=== PATIENT | male | born 1940 | race Caucasian/White ===

== ENCOUNTER 2019-11-02 14:25 | Emergency (ER) | payer MEDICARE ==
[~2019-11-02] VITALS: Ht 172.7 cm; Wt 62.6 kg
[~2019-11-02 14:25] MED LIST: ALBU18HF2 INH; CARV6.253 PO; FORM20VI NEB; FURO20TA4 PO; IPRA4AER IH; LEVA1.2527 NEB; LISI2.5T2 PO; PRED20TA PO; UMEC1DIS PO
[2019-11-02 16:28] LABS: BASOPHILS % (AUTO) 0.1 % (0-1); EOSINOPHILS % (AUTO) 0.3 % (0-6); HEMATOCRIT 39.2 % (42.0-52.0); LYMPHOCYTES # (AUTO) 0.5 X10'3 (1.1-4.8); LYMPHOCYTES % (AUTO) 2.6 % (21-51); MEAN CORPUSCULAR HEMOGLOBIN 29.5 PG (27.0-31.0); MEAN CORPUSCULAR HGB CONC 33.3 g/dL (33.0-36.5); MEAN CORPUSCULAR VOLUME 88.5 FL (78-98); MEAN PLATELET VOLUME 7.3 FL (7.4-10.4); MONOCYTES # (AUTO) 1.3 X10'3 (0-0.9); MONOCYTES % (AUTO) 6.8 % (2-12); NEUTROPHILS # (AUTO) 16.8 X10'3 (1.8-7.7); NEUTROPHILS % (AUTO) 90.2 % (42-75); PLATELET COUNT 333 X10'3 (140-440); RED BLOOD COUNT 4.42 X10'6 (4.70-6.10); RED CELL DISTRIBUTION WIDTH 14.9 % (11.5-14.5); WHITE BLOOD COUNT 18.7 X10'3 (4.5-11.0)
[2019-11-02 16:40] LABS: PARTIAL THROMBOPLASTIN TIME 26 SECONDS (22-32)
[2019-11-02 16:44] LABS: ALANINE AMINOTRANSFERASE 31 U/L (12-78); ALBUMIN 3.7 G/DL (3.4-5.0); ALBUMIN/GLOBULIN RATIO 1.2 (1.1-1.5); ALKALINE PHOSPHATASE 76 IU/L (46-116); ANION GAP 7 (8-16); ASPARTATE AMINO TRANSFERASE 19 U/L (10-37); BILIRUBIN,TOTAL 0.6 MG/DL (0.1-1.0); BLOOD UREA NITROGEN 14 MG/DL (7-18); BUN/CREATININE RATIO 13.6 (5.4-32.0); CALCIUM 8.7 MG/DL (8.5-10.1); CHLORIDE 95 MMOL/L (99-107); CREATININE 1.03 MG/DL (0.60-1.10); GLUCOSE 128 MG/DL (70-104); POTASSIUM 3.7 MMOL/L (3.5-5.1); SODIUM 134 MMOL/L (135-145); TOTAL CARBON DIOXIDE 32.4 MMOL/L (24-32); TOTAL PROTEIN 6.8 G/DL (6.4-8.2); eGFR 70 ML/MIN
[2019-11-02 16:53] LABS: MAGNESIUM 1.9 MG/DL (1.5-2.4)
[2019-11-02 17:09] LABS: CLARITY,URINE CLEAR (Clear); COLOR,URINE YELLOW (Yellow); GLUCOSE, URINE NEGATIVE (Neg); KETONES,URINE NEGATIVE (Neg); LEUKOCYTE ESTERASE ,URINE NEGATIVE (Neg); NITRITES, URINE NEGATIVE (Neg); OCCULT BLOOD,URINE NEGATIVE (Neg); PH,URINE 5.5 (4.8-8.0); PROTEIN,URINE NEGATIVE (Neg); UA COLLECTION TYPE VOIDED; UROBILINOGEN,URINE 0.2 E.U/dL (0.2-1.0)
[2019-11-02 17:21] LABS: URINE AMPHETAMINE SCREEN NEGATIVE (Neg); URINE BARBITUATE SCREEN NEGATIVE (Neg); URINE BENZODIAZEPINES SCREEN NEGATIVE (Neg); URINE CANNABINOID SCREEN NEGATIVE (Neg); URINE COCAINE SCREEN NEGATIVE (Neg); URINE METHADONE SCREEN NEGATIVE (Neg); URINE OPIATE SCREEN NEGATIVE (Neg); URINE PHENCYCLIDINE SCREEN NEGATIVE (Neg)
--- NOTE | 2019-11-02 17:43 | NUR ---
TELE NEURO CONSULT HAS BEEN INITIATED
[2019-11-02] MEDS ORDERED: OLANZapine 2.5MG tablet PO STA (19:51)
[2019-11-02 19:59] VITALS: BP 125/95
[2019-11-02] MEDS ORDERED: budesonide 0.5mg/2ml UD nebule IH SCH (20:16)
[2019-11-02] MEDS ORDERED: albuterol 2.5 MG/3 ML nebule NEB PRN (20:20)
[2019-11-02] MEDS ORDERED: levalbuterol 1.25mg/0.5ml nebule IH SCH (21:00)
[2019-11-03] MEDS ORDERED: furosemide 20MG tablet PO SCH (08:00)
[2019-11-03] MEDS ORDERED: FURO20TA4 PO (16:52)
[2019-11-07] MEDS ORDERED: tamsulosin capsule PO (12:17)
[2019-11-07] MEDS ORDERED: AMOX-422 PO (12:17)
[2019-11-07] MEDS ORDERED: FLO0.4C PO (12:17)
[2019-11-07] MEDS ORDERED: OLAN2.5T28 PO (12:17)
== END 2019-11-02 21:38 | disposition home or self-care (01) ==
LOC: ER 14:25
DX: F29 Unspecified psychosis not due to a substance or known physiological condition (principal); R93.89 Abnormal findings on diagnostic imaging of other specified body structures; I10 Essential (primary) hypertension; J44.9 Chronic obstructive pulmonary disease, unspecified; Z87.01 Personal history of pneumonia (recurrent); Z79.899 Other long term (current) drug therapy; Z88.2 Allergy status to sulfonamides; Z88.8 Allergy status to other drugs, medicaments and biological substances
CPT/HCPCS: 36415; 70450; 71045; 80053; 80305; 81003; 83605; 83735; 83880; 84145; 85025; 85610; 85730; 87040; 93005; 99285; J7614

== ENCOUNTER 2019-11-02 20:42 | Inpatient (IN) | payer MEDICARE ==
[~2019-11-02] VITALS: Ht 177.8 cm; Wt 59.7 kg
[2019-11-02] MEDS ORDERED: loperamide 2mg capsule PO PRN (21:50)
[2019-11-02] MEDS ORDERED: acetaminophen 325mg tablet PO PRN ×2 (21:50)
[2019-11-02] MEDS ORDERED: mag hydrox/Alum hydrox/simeth 30ml oral suspension PO PRN (21:55)
[2019-11-02] MEDS ORDERED: LORazepam 1 MG tablet PO PRN (21:55)
[2019-11-02] MEDS ORDERED: magnesium hydroxide 30ml (MOM) UD suspension PO PRN (21:55)
[2019-11-02] MEDS ORDERED: hydrOXYzine 25 MG tablet PO PRN (21:55)
[2019-11-02 22:20] VITALS: BP 140/76
[2019-11-02] MEDS ORDERED: albuterol 2.5 MG/3 ML nebule NEB PRN (22:45)
[2019-11-02] MEDS ORDERED: OLANZapine 2.5MG tablet PO ONE (23:30)
--- NOTE | 2019-11-03 02:04 | NUR ---
RESP PAGED AT 02:00 FOR CPAP.
--- NOTE | 2019-11-03 02:39 | NUR ---
Client refused CPAP. CPAP and Nasal canula left in storage room for client.
--- NOTE | 2019-11-03 02:40 | NUR ---
ADMIT NOTE: Client presented to ED with symptoms of psychosis. Client does not have hx of mental health issues (according to family). Client was recently admitted for Respiratory Distress. 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 Client received steroids to treat inflammation in lungs and began to demonstrate changes in behavior and mentation. Client reported seeing "sheep and floaty things". Client then reported hearing voices giving him various directions which client adamantly adhere's to. Client appeared anxious when he arrived on the unit. His behavior is disorganized, as is his thought process. Arrived at 22:19 in a wheelchair accompanied by Dino Fuchs. Client initially was cooperative and then became resistive to care. Client refused CPAP and nasal canula. Client attempted to exit unit and was redirected by two staff members to his room. Client is currently on a LOS.
--- NOTE | 2019-11-03 02:50 | NUR ---
LOS FOR ELOPEMENT RISK.
[2019-11-03 08:00] VITALS: BP 104/55
[2019-11-03] MEDS ORDERED: furosemide 20MG tablet PO SCH (08:00)
[2019-11-03 08:17] LABS: HEMOGLOBIN A1C 6.5 % (4.5-6.2)
[2019-11-03 08:18] LABS: CHOL/HDL RATIO 2.5 (0.00-4.99); CHOLESTEROL 142 MG/DL (0-200); HDL CHOLESTEROL 56 MG/DL (35-60); LDL CHOLESTEROL 78 MG/DL (50-100); TRIGLYCERIDES 44 MG/DL (20-135)
[2019-11-03] MEDS: levalbuterol 1.25mg/0.5ml nebule IH SCH ×2 (09:00→15:47)
[2019-11-03] MEDS ORDERED: FORMOTEROL FUMARATE IH SCH (09:00)
--- NOTE | 2019-11-03 12:31 | NUR ---
Malnutrition consult: Unsure of wt loss however decreased appetite per malnutrition risk screen with RN. Pt documented as confused, A/O x1, agitated, impulsive, anxious, and resistive to care. Only recent wt hx is pt stated wt of 61.36 kg obtained 10/18/19; current standing scaled wt is 59.7 kg. Per ht hx pt 68", updated BMI more appropriate at 19.7. Pt on a regular diet documented with 25% PO intake first meal not meeting nutrient needs. Per physical assessment pt c/o mouth being sore, likely impacting PO intake. Pt with good PO intake meeting nutrient needs throughout LOS at last admit 10/18-10/23. Pt with no decrease in muscle strength however with bilat hand 1+, RLE 3+, and LLE 2 + edema. Pt currently lacks a minimum of two criteria. Will continue to follow and monitor weight and trends in PO intake to monitor for malnutrition during admit. Addendum: 11/03/19 at [address] Amended: Links added.
--- NOTE | 2019-11-03 13:16 | NUR ---
Nursing Note: Pt presented as confused, paranoid, fearful, and hypervigilant this morning, he began pacing the unit and door checking. He asked for breakfast then stated he wanted waffles so wasn't going to eat since there were no waffles. Pt did agree to eat some breakfast with much encouragement, he ate around 25% of breakfast. PCT reported that the pt appeared to be seeing things that were not there. Pt given prn Ativan 1 mg at 0814 with much encouragement for anxiety/agitation. Pt c/o his mouth being really sore, diffuse white patches noted on gums. Pt's HR was irregular, he has BLE edema. Right LE +3 pitting pretibial down to feet, LLE +2 pitting pretibial down. Pt has a moist productive cough, unable to visualize secretions as the pt swallows them. Pt continues on a 1:1 due to confusion/delirium and elopement attempt last night. PCT reported that everytime the pt fell asleep he was aspirating on his saliva while laying in bed on his back, he would then sit up and cough, then lie back down again. Lung sounds are diminished throughout. Per noc shift report pt refused his CPAP last night and did not sleep at all. Pt repositioned on his side with HOB up 45 degrees and then was able to sleep without coughing. Pt is on routine nebulizer treatments, notified RT of respiratory issues. Requested that RT return to apply bipap. RT did return and apply biPap, pt currently tolerating. Pt's family visited, stressed that this was an abrupt mental change for the patient, that he has no previous psych history. They expressed concern over the possibility of the pt being started on an antipsychotic medication and in fact were against it at this point, they wished to speak with the provider. They also stated that the pt likes his CPAP and is normally quite vigilant with it. Bryon JORDAN notified of family's concerns. PCT called this RN to the room as the pt was standing up with his eyes closed and fumbling with his pants. A urinal was provided and pt was able to void into the urinal with assistance while standing there with his eyes still closed. Called to the room again by PCT as pt was sitting on the edge of the bed with his eyes closed rubbing his private area repeatedly and would not stop. Pt did not seem to be aware of what he was doing, assisted pt to lie back down again. Addressed concerns with charge nurse, PA, and director that pt seemed to be exhibiting signs of delirium and last WBC count from 11/02/19 was elevated at 18.7, pt also had an elevated BNP of 1430. Paged hospitalist. Dr Ryan returned the call and agreed that the pt should be on a medical floor. Pt is to be transferred to a medical unit.
[2019-11-03 13:45] VITALS: BP 107/51
--- NOTE | 2019-11-03 15:53 | NUR ---
PCT reported that pt has been trying to void using the urinal with assistance but has only been able to void 25 ml after receiving PO Lasix 20 mg this morning. PCT reported that he did have a full void in the toilet earlier in the shift before breakfast. Bladder scan showed 526 ml urine. Bladder does not appear or feel distended. VS rechecked: 98.2, 107/51, RR 36, O2 sat 92% on RA. HR with dynamap jumping around from 40 up to 62, irregular to palpation and auscultation. Pt coughed up a small amount of thick yellow sputum, cough is moist, audible upper airway congestion. Pt is obtunded though does respond to light sternal rub by opening his eyes momentarily. Dr Major arrived on the unit to assess pt. states pt needs to be transferred to PCU. Called and notified nursing nursery supervisor Elizabeth. Dr Major stated no intervention needed for urinary retention at this time, it can wait until pt transferred.
--- NOTE | 2019-11-03 16:50 | NUR ---
Pt transferred to PCU room 3027B via w/c accompanied by PCT and RT, report given to MED DIR.
[2019-11-03] MEDS ORDERED: FURO20TA4 PO (16:52)
[2019-11-07] MEDS ORDERED: tamsulosin capsule PO (12:17)
[2019-11-07] MEDS ORDERED: OLAN2.5T28 PO (12:17)
[2019-11-07] MEDS ORDERED: AMOX-422 PO (12:17)
[2019-11-07] MEDS ORDERED: FLO0.4C PO (12:17)
== END 2019-11-03 16:32 | disposition swing bed (61) | DRG 885 ==
LOC: ADULT MH 21:41
PROVIDERS: ADMIT Psychiatry & Neurology Psychiatry; ATTEND Psychiatry & Neurology Psychiatry
PROC: 5A09357 Assistance with Respiratory Ventilation, Less than 24 Consecutive Hours, Continuous Positive Airway Pressure (ICD-10-PCS; principal; 2019-11-03)
DX: F29 Unspecified psychosis not due to a substance or known physiological condition (principal); I11.0 Hypertensive heart disease with heart failure; I50.9 Heart failure, unspecified; J44.9 Chronic obstructive pulmonary disease, unspecified; G47.30 Sleep apnea, unspecified; Z85.46 Personal history of malignant neoplasm of prostate
CPT/HCPCS: 36415; 80061; 83036; 87081; 94640; 94660; 94760; J7614

== ENCOUNTER 2019-11-12 22:06 | Emergency (ER) | payer MEDICARE ==
[~2019-11-12] VITALS: Ht 172.7 cm; Wt 59.1 kg
[~2019-11-12 22:06] MED LIST changes: +AMOX-422 PO; -CARV6.253 PO; +FLO0.4C PO; -IPRA4AER IH; -LISI2.5T2 PO; +OLAN2.5T28 PO; -PRED20TA PO; -UMEC1DIS PO; +tamsulosin capsule PO
[2019-11-12 23:04] LABS: CLARITY,URINE CLEAR (Clear); COLOR,URINE YELLOW (Yellow); GLUCOSE, URINE NEGATIVE (Neg); KETONES,URINE NEGATIVE (Neg); LEUKOCYTE ESTERASE ,URINE TRACE (Neg); NITRITES, URINE NEGATIVE (Neg); OCCULT BLOOD,URINE MODERATE (Neg); PROTEIN,URINE NEGATIVE (Neg); UROBILINOGEN,URINE 0.2 E.U/dL (0.2-1.0)
[2019-11-12 23:08] LABS: UA COLLECTION TYPE FOLEY CATH
[2019-11-12 23:09] LABS: WBC,URINE 0-4 /HPF (0-4)
[2019-11-12 23:10] LABS: BACTERIA,URINE FEW /HPF (Neg); SQUAMOUS EPITHELIAL CELL,UR NONE SEEN /LPF (FEW); TRANSITIONAL EPI CELLS,URINE FEW /HPF
[2019-11-12] MEDS ORDERED: CIPR-230 PO (23:20)
[2019-11-12 23:51] VITALS: BP 125/78
== END 2019-11-12 23:53 | disposition home or self-care (01) ==
LOC: ER 22:06
DX: R33.9 Retention of urine, unspecified (principal); R10.30 Lower abdominal pain, unspecified; I10 Essential (primary) hypertension; J43.9 Emphysema, unspecified; Z88.2 Allergy status to sulfonamides; Z79.2 Long term (current) use of antibiotics; Z79.899 Other long term (current) drug therapy
CPT/HCPCS: 81001; 87088; 99283

== ENCOUNTER 2020-12-06 18:59 | Emergency (ER) | payer MEDICARE ==
[~2020-12-06] VITALS: Ht 172.7 cm; Wt 64.8 kg
[~2020-12-06 18:59] MED LIST changes: -AMOX-422 PO; -FLO0.4C PO
--- NOTE | 2020-12-06 19:27 | NUR ---
NO ISOLATION NEEDED, PER DR DOTSON, ORDER TAKEN FOR BLADDER SCAN AND TEE PLACEMENT
[2020-12-06] MEDS ORDERED: dexamethasone 4mg tablet PO ONE (19:30)
[2020-12-06] MEDS ORDERED: ipratropium/albuterol 3ml nebule NEB ONE (19:30)
[2020-12-06] MEDS ORDERED: LIDOcaine 2% 10ml TOPICAL JELLY (Urojet) TP ONE ×2 (19:30)
[2020-12-06] MEDS ORDERED: DOXY100C43 PO (20:53)
[2020-12-06] MEDS ORDERED: ALBU8HFA PO (20:53)
[2020-12-06] MEDS ORDERED: PRED20TA PO (20:53)
[2020-12-06 21:04] VITALS: BP 156/66
== END 2020-12-06 21:12 | disposition home or self-care (01) ==
LOC: ER 18:59
DX: R33.9 Retention of urine, unspecified (principal); J44.1 Chronic obstructive pulmonary disease with (acute) exacerbation; R91.8 Other nonspecific abnormal finding of lung field; I10 Essential (primary) hypertension; Z88.2 Allergy status to sulfonamides; Z79.899 Other long term (current) drug therapy
CPT/HCPCS: 51702; 74176; 93005; 94640; 94760; 99284

== ENCOUNTER 2021-12-06 01:45 | Emergency (ER) | payer MEDICARE ==
[~2021-12-06] VITALS: Ht 172.7 cm; Wt 78.9 kg
[~2021-12-06 01:45] MED LIST changes: +BUDE0.5A3 NEB; +DUTA0.5C36 PO; +FLO0.4C PO; -FORM20VI NEB; -FURO20TA4 PO; -OLAN2.5T28 PO; -tamsulosin capsule PO
[2021-12-06 03:15] VITALS: BP 160/78
--- NOTE | 2021-12-06 05:01 | NUR ---
PATIENT PLACED IN FAST TRACK. COUDE CATH ATTEMPTED ON THREE OCCASIONS BY THREE DIFFERENT RN'S WITHOUT SUCCESS. ER MD NOTIFIED. MD WILL ATTEMPT PLACEMENT HIMSELF. PATIENT WAS ABOE TO VOIDE ABOUT 150 CC'S IN HOSPITAL BED.
[2021-12-06 08:17] LABS: CLARITY,URINE SLIGHTLY CLOUDY (Clear); COLOR,URINE YELLOW (Yellow); GLUCOSE, URINE NEGATIVE (Neg); KETONES,URINE 15 mg/dl (Neg); LEUKOCYTE ESTERASE ,URINE NEGATIVE (Neg); NITRITES, URINE NEGATIVE (Neg); OCCULT BLOOD,URINE MODERATE (Neg); PROTEIN,URINE TRACE mg/dl (Neg); UROBILINOGEN,URINE 0.2 E.U/dL (0.2-1.0)
[2021-12-06 08:18] LABS: UA COLLECTION TYPE URINAL
[2021-12-06 08:24] LABS: BACTERIA,URINE NONE SEEN /HPF (Neg); MUCUS STRANDS FEW /LPF (Neg); RBC,URINE 20-50 /HPF (0-2); SQUAMOUS EPITHELIAL CELL,UR NONE SEEN /LPF (FEW); WBC,URINE 0-4 /HPF (0-4)
== END 2021-12-06 09:20 | disposition home or self-care (01) ==
LOC: ER 01:45
DX: R33.9 Retention of urine, unspecified (principal); R32 Unspecified urinary incontinence; I10 Essential (primary) hypertension; J43.9 Emphysema, unspecified; N40.0 Benign prostatic hyperplasia without lower urinary tract symptoms; Z88.2 Allergy status to sulfonamides; Z79.899 Other long term (current) drug therapy
CPT/HCPCS: 81001; 99284

== ENCOUNTER 2022-10-12 21:56 | Emergency (ER) | payer MEDICARE ==
[~2022-10-12] VITALS: Ht 172.7 cm; Wt 75.0 kg
[2022-10-12 23:36] LABS: BASOPHILS # (AUTO) 0.1 X10'3 (0-0.2); BASOPHILS % (AUTO) 0.9 % (0-1); EOSINOPHILS # (AUTO) 0.1 X10'3 (0-0.9); EOSINOPHILS % (AUTO) 0.8 % (0-6); HEMATOCRIT 41.6 % (42.0-52.0); HEMOGLOBIN 13.5 g/dl (14.0-17.9); LYMPHOCYTES # (AUTO) 0.6 X10'3 (1.1-4.8); LYMPHOCYTES % (AUTO) 4.6 % (21-51); MEAN CORPUSCULAR HGB CONC 32.4 g/dL (33.0-36.5); MEAN CORPUSCULAR VOLUME 95.5 FL (78-98); MEAN PLATELET VOLUME 7.9 FL (7.4-10.4); MONOCYTES # (AUTO) 0.7 X10'3 (0-0.9); MONOCYTES % (AUTO) 5.6 % (2-12); NEUTROPHILS # (AUTO) 11.5 X10'3 (1.8-7.7); NEUTROPHILS % (AUTO) 88.1 % (42-75); PLATELET COUNT 275 X10'3 (140-440); RED BLOOD COUNT 4.36 X10'6 (4.70-6.10); RED CELL DISTRIBUTION WIDTH 13.4 % (11.5-14.5)
[2022-10-12 23:53] LABS: ALANINE AMINOTRANSFERASE 33 U/L (12-78); ALBUMIN 3.1 G/DL (3.4-5.0); ALBUMIN/GLOBULIN RATIO 0.8 (1.1-1.5); ALKALINE PHOSPHATASE 79 IU/L (46-116); ANION GAP 8 (8-16); ASPARTATE AMINO TRANSFERASE 23 U/L (10-37); BILIRUBIN,TOTAL 0.5 MG/DL (0.1-1.0); BLOOD UREA NITROGEN 13 MG/DL (7-18); BUN/CREATININE RATIO 18.3 (5.4-32.0); CALCIUM 8.7 MG/DL (8.5-10.1); CHLORIDE 105 MMOL/L (99-107); CREATININE 0.71 MG/DL (0.60-1.10); GLUCOSE 142 MG/DL (70-104); POTASSIUM 4.1 MMOL/L (3.5-5.1); SODIUM 140 MMOL/L (135-145); TOTAL CARBON DIOXIDE 27.1 MMOL/L (24-32); TOTAL PROTEIN 6.8 G/DL (6.4-8.2); eGFR > 90 ML/MIN
[2022-10-13] MEDS ORDERED: oxymetazoline 15 ML nasal spray NS ONE (00:05)
[2022-10-13] MEDS ORDERED: CEPH-585 PO (03:33)
[2022-10-13 03:44] VITALS: BP 144/70
== END 2022-10-13 03:45 | disposition home or self-care (01) ==
LOC: ER 21:57
DX: R04.0 Epistaxis (principal); Z20.822 Contact with and (suspected) exposure to COVID-19; I10 Essential (primary) hypertension; R06.02 Shortness of breath; R50.9 Fever, unspecified; J43.9 Emphysema, unspecified; Z87.01 Personal history of pneumonia (recurrent); Z88.2 Allergy status to sulfonamides; Z79.899 Other long term (current) drug therapy
CPT/HCPCS: 30905; 36415; 71045; 80053; 83880; 84484; 85025; 87502; 87503; 87635; 93005; 99285; C9803

== ENCOUNTER 2022-10-16 12:33 | Emergency (ER) | payer MEDICARE ==
[~2022-10-16] VITALS: Ht 172.7 cm; Wt 72.0 kg
[~2022-10-16 12:33] MED LIST changes: +CEPH-585 PO
[2022-10-16 12:49] VITALS: BP 124/69
== END 2022-10-16 17:05 | disposition home or self-care (01) ==
LOC: ER 12:33
DX: R04.0 Epistaxis (principal); R06.02 Shortness of breath; J34.9 Unspecified disorder of nose and nasal sinuses; Z88.2 Allergy status to sulfonamides; Z79.899 Other long term (current) drug therapy
CPT/HCPCS: 99281

== ENCOUNTER 2022-12-18 13:45 | Emergency (ER) | payer MEDICARE ==
[~2022-12-18] VITALS: Ht 172.7 cm; Wt 70.0 kg
[2022-12-18 13:50] VITALS: BP 134/79
[2022-12-18] MEDS ORDERED: LIDOcaine 2% 10ml TOPICAL JELLY (Urojet) MM STA (14:00)
[2022-12-18] MEDS ORDERED: LIDOcaine 2% 10ml TOPICAL JELLY (Urojet) TP ONE (14:25)
[2022-12-18 15:35] LABS: CLARITY,URINE SLIGHTLY CLOUDY (Clear); COLOR,URINE YELLOW (Yellow); GLUCOSE, URINE NEGATIVE (Neg); KETONES,URINE NEGATIVE (Neg); LEUKOCYTE ESTERASE ,URINE NEGATIVE (Neg); NITRITES, URINE NEGATIVE (Neg); OCCULT BLOOD,URINE LARGE (Neg); PROTEIN,URINE TRACE mg/dl (Neg); UROBILINOGEN,URINE 0.2 E.U/dL (0.2-1.0)
[2022-12-18 15:38] LABS: UA COLLECTION TYPE NON-SPECIFIED
[2022-12-18 15:43] LABS: BACTERIA,URINE FEW /HPF (Neg); RBC,URINE 50-100 /HPF (0-2); WBC,URINE 0-4 /HPF (0-4)
--- NOTE | 2022-12-18 15:43 | NUR ---
pt opted to not have a reyes catheter placed. He will return if he is not able to void again. JULIAN Arrieta made aware.
[2022-12-18 15:44] LABS: MUCUS STRANDS NONE SEEN /LPF (Neg); SQUAMOUS EPITHELIAL CELL,UR FEW /LPF (FEW)
--- NOTE | 2022-12-18 16:20 | NUR ---
Pt bladder scanned with >632ml urinary retention. Attempted to place 14fr coude cath, unable to advance all the way in, resistance met. Pt able to void 125ml and again 300ml into urinal with much straining approximately 10 minutes each time. Infant catheter used to empty bladder approximately 300ml return. Urine sent for U/A.
[2022-12-19] MEDS ORDERED: CEPH-585 PO (06:56)
== END 2022-12-18 16:20 | disposition home or self-care (01) ==
LOC: ER 13:47
DX: R33.9 Retention of urine, unspecified (principal); I10 Essential (primary) hypertension; J44.9 Chronic obstructive pulmonary disease, unspecified; Z88.2 Allergy status to sulfonamides
CPT/HCPCS: 51702; 81001; 99284; A4340; A4353

== ENCOUNTER 2022-12-19 05:29 | Emergency (ER) | payer MEDICARE ==
[~2022-12-19] VITALS: Ht 172.7 cm; Wt 70.0 kg
[2022-12-19] MEDS ORDERED: LIDOcaine Viscous 15ml cup MM ONE (06:00)
[2022-12-19 06:50] VITALS: BP 129/89
[2022-12-19] MEDS ORDERED: CEPH-585 PO (06:56)
[2022-12-19 07:38] LABS: CLARITY,URINE CLEAR (Clear); COLOR,URINE YELLOW (Yellow); GLUCOSE, URINE NEGATIVE (Neg); KETONES,URINE TRACE mg/dl (Neg); LEUKOCYTE ESTERASE ,URINE NEGATIVE (Neg); NITRITES, URINE NEGATIVE (Neg); OCCULT BLOOD,URINE NEGATIVE (Neg); PH,URINE 5.5 (4.8-8.0); PROTEIN,URINE NEGATIVE (Neg); UA COLLECTION TYPE FOLEY CATH; UROBILINOGEN,URINE 0.2 E.U/dL (0.2-1.0)
== END 2022-12-19 07:18 | disposition home or self-care (01) ==
LOC: ER 05:30
DX: R33.9 Retention of urine, unspecified (principal); R30.0 Dysuria; I10 Essential (primary) hypertension; J44.9 Chronic obstructive pulmonary disease, unspecified; Z88.2 Allergy status to sulfonamides
CPT/HCPCS: 51702; 81003; 99284; A4340; A4358